=== PATIENT | female | born 1970 | race Caucasian/White ===

== ENCOUNTER 2021-12-07 19:08 | Emergency (ER) | payer OTHER | END 2021-12-07 20:50 | disposition home or self-care (01) | LOC: CSHERS 19:08 | DX: U07.1 COVID-19 (principal); I10 Essential (primary) hypertension; E11.9 Type 2 diabetes mellitus without complications; Z79.899 Other long term (current) drug therapy; Z79.4 Long term (current) use of insulin | CPT/HCPCS: 99284 ==

== ENCOUNTER 2025-10-09 09:54 | Outpatient (CLI) | payer OTHER | END 2025-10-09 09:55 | disposition home or self-care (01) | LOC: CSHSLEEP 09:54 | PROVIDERS: ATTEND Internal Medicine | DX: G47.33 Obstructive sleep apnea (adult) (pediatric) (principal); E11.9 Type 2 diabetes mellitus without complications; I10 Essential (primary) hypertension; G47.61 Periodic limb movement disorder | CPT/HCPCS: 95811 ==